=== PATIENT | female | born 1985 ===

== ENCOUNTER 2020-03-14 00:21 | Inpatient (IN) | payer OTHER ==
[2020-03-14] MEDS ORDERED: Nalbuphine 10 MG/1 ML Vial IVPUSH PRN (00:27)
[2020-03-14] MEDS ORDERED: Tranexamic Acid 1,000 MG in Sodium Chloride 0.9% 100 ML IV PRN (00:27)
[2020-03-14] MEDS ORDERED: Sodium Chloride 0.9% 10 ML SDV IV PRN (00:27)
[2020-03-14] MEDS ORDERED: Carboprost Tromethamine 250 MCG/1 ML Amp IM PRN (00:27)
[2020-03-14] MEDS ORDERED: Water For Irrigation,Sterile 1,000 ML Container IRR PRN (00:27)
[2020-03-14] MEDS ORDERED: Misoprostol 200 MCG Tab PO PRN (00:27)
[2020-03-14] MEDS ORDERED: Ondansetron 4 MG/2 ML SDV IVPUSH PRN (00:27)
[2020-03-14] MEDS ORDERED: Lidocaine 1% 50 ML MDV INJECT PRN (00:27)
[2020-03-14] MEDS ORDERED: Sodium Chloride 0.9% 10 ML Syringe FLUSH PRN (00:27)
[2020-03-14] MEDS ORDERED: Sodium Chloride 0.9% 2.5 ML Syringe FLUSH PRN (00:27)
[2020-03-14] MEDS ORDERED: Ampicillin 2 GM in Sodium Chloride 0.9% 100 ML IV ONE (00:27)
[2020-03-14] MEDS ORDERED: Methylergonovine 0.2 MG/1 ML Amp IM PRN (00:27)
[2020-03-14] MEDS ORDERED: Oxytocin/0.9 % Sodium Chloride 30 UNIT/500 ML BAG IV SCH ×2 (00:30→00:45)
[2020-03-14] MEDS ORDERED: Misoprostol 25 MCG (1/4 of 100 MCG) Tab VAG PRN (00:32)
[2020-03-14] MEDS ORDERED: Terbutaline 1 MG/ML SDV SUBCUT PRN (00:32)
[2020-03-14] MEDS ORDERED: Misoprostol 25 MCG (1/4 of 100 MCG) Tab PO PRN (00:32)
[2020-03-14] MEDS: Lactated Ringers 1,000 ML IV SCH ×3 (00:55→13:38)
[2020-03-14] MEDS: Ampicillin 1 GM in Sodium Chloride 0.9% 50 ML IV SCH ×4 (04:55→17:07)
[2020-03-14] MEDS: Butorphanol 1 MG/ML SDV IVPUSH PRN ×2 (09:30→10:44)
[2020-03-14] MEDS ORDERED: FLU VACC QS2020-21(6MOS UP)/PF 60 MCG/0.5 ML SYRINGE IM ONE (10:00)
[2020-03-14] MEDS ORDERED: Butorphanol 1 MG/ML SDV IM STA (10:38)
[2020-03-14] MEDS ORDERED: Promethazine 25 MG/ML SDV IM STA (10:39)
--- NOTE | 2020-03-14 11:50 | PCM.LDHP ---
L&D History of Present Illness - General Date of Service: 03/14/20 Admit Problem/Dx: Patient Status Order with Admit Dx/Problem 03/14/20 00:27 Patient Status [ADT] Routine Admission Diagnosis/Problem Admission Diagnosis/Problem - planned 03/14/20 11:43 Term Post date induction of labor Source of Information: Patient History Limitations: Reports: No Limitations - History of Present Illness Introduction:: 34yo at 40w4d [place] here for induction of labor for postdate. GBS+, otherwise unremarkable. 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: Social & Family History - Family History Family Medical History: Noncontributory - Tobacco Use Tobacco Use Status *Q: Never Tobacco User Second Hand Smoke Exposure: No - Caffeine Use Caffeine Use: Reports: Coffee, Energy Drinks, Soda, Tea H&P Review of Systems - Review of Systems: Review Of Systems: See Below General: Reports: No Symptoms HEENT: Reports: No Symptoms Pulmonary: Reports: No Symptoms Cardiovascular: Reports: No Symptoms Gastrointestinal: Reports: No Symptoms Genitourinary: Reports: No Symptoms Musculoskeletal: Reports: No Symptoms Skin: Reports: No Symptoms Psychiatric: Reports: No Symptoms Neurological: Reports: No Symptoms Hematologic/Lymphatic: Reports: No Symptoms Immunologic: Reports: No Symptoms L&D Exam - Exam Exam: See Below - Vital Signs Weight: 68.492 kg - OB Specific Contraction Intensity: Irritability Movement: Active Heart Tones: Present Heart Tones per Min: 140 Heart Rate (FHR) Variability: Moderate (6-25 bmp) Presentation: Vertex Estimated Weight: 7lbs 5oz - Elizabeth Score Elizabeth Score Cervix Position: Midposition Elizabeth Score Consistency: Soft Elizabeth Score Effacement: >80% Elizabeth Score Dilation: 1-2 cm Elizabeth Score Infant's Station: -2 Elizabeth Score Total: 8 - Exam General: Alert, Oriented Neck: Supple Lungs: Clear to Auscultation, Normal Respiratory Effort Cardiovascular: Regular Rate, Regular Rhythm GI/Abdominal Exam: Soft, Non-Tender Psychiatric: Normal Affect, Normal Mood (Vaginal exam perfomed by the nurse) - Patient Data Lab Results Last 24 hrs: Laboratory Results - last 24 hr 03/14/20 03/14/20 03/14/20 Range/Units 00:40 00:40 00:55 WBC 7.83 (4.0-11.0) K/uL RBC 4.01 L (4.30-5.90) M/uL Hgb 12.2 (12.0-16.0) g/dL Hct 37.7 (36.0-46.0) % MCV 94.0 (80.0-98.0) fL MCH 30.4 (27.0-32.0) pg MCHC 32.4 (31.0-37.0) g/dL RDW Std Deviation 47.8 (28.0-62.0) fl RDW Coeff of Christos 15 (11.0-15.0) % Plt Count 178 (150-400) K/uL MPV 11.20 (7.40-12.00) fL SARS-CoV-2 RNA (SONA) NEGATIVE (NEGATIVE) Blood Type A POSITIVE Antibody Screen NEGATIVE Result Diagrams: 03/14/20 00:40 - Problem List (1) Post term over 40 weeks SNOMED Code(s): 053900375 ICD Code: O48.0 - POST-TERM Status: Acute Current Visit: Yes (2) Positive GBS test SNOMED Code(s): 197852282, 468214863 ICD Code: B95.1 - STREPTOCOCCUS, GROUP B, CAUSING DISEASES CLASSD [id number] Status: Acute Current Visit: Yes (3) GBS (group B Streptococcus carrier), +RV culture, currently SNOMED Code(s): 2348275304811, 373001975, 5293067109996 ICD Code: O99.820 - STREPTOCOCCUS B CARRIER STATE COMPLICATING Status: Acute Current Visit: Yes Problem List Initiated/Reviewed/Updated: Yes Orders Last 24hrs: Active Orders 24 hr Category Date Time Status Patient Status [ADT] Routine ADT 03/14/20 00:27 Active Bedrest Bathroom Privileges [RC] ASDIRECTED Care 03/14/20 00:32 Active Communication Order [RC] ASDIRECTED Care 03/14/20 00:32 Active Communication Order [RC] ASDIRECTED Care 10/18/20 00:32 Active Communication Order [RC] ASDIRECTED Care 03/14/20 00:32 Active Heart Tones [RC] CONTINUOUS Care 03/14/20 00:27 Active Non Stress Test [RC] PER UNIT ROUTINE Care 03/14/20 00:27 Active Influenza Vaccine Charge [RC] .DISCHARGE Care 03/14/20 02:53 Active May Shower [RC] ASDIRECTED Care 03/14/20 00:27 Active Notify Provider [RC] PRN Care 03/14/20 00:27 Active Notify Provider [RC] PRN Care 03/14/20 00:32 Active Notify Provider [RC] PRN Care 03/14/20 00:32 Active Notify Provider [RC] STAT Care 03/14/20 00:32 Active Oxygen Therapy [RC] ASDIRECTED Care 03/14/20 00:32 Active Up ad Steph [RC] ASDIRECTED Care 03/14/20 00:27 Active Vaginal Exam [RC] PRN Care 03/14/20 00:27 Active Vaginal Exam [RC] PRN Care 03/14/20 00:32 Active Vital Signs [RC] PER UNIT ROUTINE Care 03/14/20 00:27 Active Vital Signs [RC] PER UNIT ROUTINE Care 03/14/20 00:32 Active Regular Diet [DIET] Diet 03/14/20 Breakfast Active RPR (SYPHILIS SERO) W/ RFLX [REF] Routine Lab 03/14/20 00:40 Received Ampicillin 1 gm Med 03/14/20 05:00 Active Sodium Chloride 0.9% [Normal Saline] 50 ml IV Q4H Butorphanol [Stadol] Med 03/14/20 09:19 Active 1 mg IVPUSH Q1H PRN Carboprost Tromethamine [Hemabate DS] Med 03/14/20 00:27 Active 250 mcg IM ASDIRECTED PRN Lactated Ringers [Ringers, Lactated] 1,000 ml Med 03/14/20 00:30 Active IV ASDIRECTED Lidocaine 1% [Xylocaine 1%] Med 03/14/20 00:27 Active 50 ml INJECT ONETIME PRN Methylergonovine [Methergine] Med 03/14/20 00:27 Active 0.2 mg IM ASDIRECTED PRN Nalbuphine [Nubain] Med 03/14/20 00:27 Active 10 mg IVPUSH Q1H PRN Ondansetron [Zofran] Med 03/14/20 00:27 Active 4 mg IVPUSH Q6H PRN Oxytocin/0.9 % Sodium Chloride [Oxytocin 30 Unit/500 ML Med 03/14/20 00:30 Active -NS] 30 unit in 500 ml IV TITRATE Oxytocin/0.9 % Sodium Chloride [Oxytocin 30 Unit/500 ML Med 03/14/20 00:45 Active -NS] 30 unit in 500 ml IV TITRATE Sodium Chloride 0.9% [Normal Saline] Med 03/14/20 00:27 Active 10 ml IV ASDIRECTED PRN Sodium Chloride 0.9% [Saline Flush] Med 03/14/20 00:27 Active 10 ml FLUSH ASDIRECTED PRN Sodium Chloride 0.9% [Saline Flush] Med 03/14/20 00:27 Active 2.5 ml FLUSH ASDIRECTED PRN Terbutaline [Brethine] Med 03/14/20 00:32 Active 0.25 mg SUBCUT ASDIRECTED PRN Tranexamic Acid [Cyklokapron] 1,000 mg Med 03/14/20 00:27 Active Sodium Chloride 0.9% [Normal Saline] 100 ml IV ONETIME Water For Irrigation,Sterile [Sterile Water for Med 03/14/20 00:27 Active Irrigation] 1,000 ml IRR ASDIRECTED PRN miSOPROStoL [Cytotec] Med 03/14/20 00:27 Active 200 mcg PO ONETIME PRN miSOPROStoL [Cytotec] Med 03/14/20 00:32 Active 25 mcg PO Q4H PRN miSOPROStoL [Cytotec] Med 03/14/20 00:32 Active 25 mcg VAG Q4H PRN Scalp Electrode [WOMSER] Per Unit Routine Oth 03/14/20 00:27 Ordered Medication Administration Instruction [OM.PC] Q3H Oth 03/14/20 00:45 Ordered Peripheral IV Insertion Adult [OM.PC] Routine Oth 03/14/20 00:27 Ordered Resuscitation Status Routine Resus Stat 03/14/20 00:27 Ordered Medication Orders Butorphanol Tartrate (Stadol) 1 mg IVPUSH Q1H PRN PRN Reason: Pain (moderate 4-6) Last Admin: 03/14/20 10:44 Dose: 1 mg Documented by: Admin: 03/14/20 09:30 Dose: 1 mg Documented by: ROSALVA Carboprost Tromethamine (Hemabate Ds) 250 mcg IM ASDIRECTED PRN PRN Reason: Post Hemorrhage Lactated Ringer's (Ringers, Lactated) 1,000 mls @ 150 mls/hr IV ASDIRECTED TARA Last Admin: 03/14/20 00:55 Dose: 150 mls/hr Documented by: KIYA Oxytocin/Sodium Chloride (Oxytocin 30 Unit/500 Ml-Ns) 30 unit in 500 mls @ 999 mls/hr IV TITRATE TARA Tranexamic Acid 1,000 mg/ (Sodium Chloride) 110 mls @ 660 mls/hr IV ONETIME PRN PRN Reason: Bleeding Oxytocin/Sodium Chloride (Oxytocin 30 Unit/500 Ml-Ns) 30 unit in 500 mls @ 2 mls/hr IV TITRATE TARA; Protocol Ampicillin Sodium 1 gm/ Sodium (Chloride) 50 mls @ 100 mls/hr IV Q4H TARA Last Admin: 03/14/20 09:00 Dose: 100 mls/hr Documented by: Infusion: 03/14/20 05:25 Dose: 100 mls/hr Documented by: Admin: 03/14/20 04:55 Dose: 100 mls/hr Documented by: KIYA Lidocaine HCl (Xylocaine 1%) 50 ml INJECT ONETIME PRN PRN Reason: Laceration repair Methylergonovine Maleate (Methergine) 0.2 mg IM ASDIRECTED PRN PRN Reason: Post Hemorrhage Misoprostol (Cytotec) 200 mcg PO ONETIME PRN PRN Reason: Post Hemorrhage Misoprostol (Cytotec) 25 mcg VAG Q4H PRN PRN Reason: Cervical Ripening Last Admin: 03/14/20 01:52 Dose: 25 mcg Documented by: KIYA Misoprostol (Cytotec) 25 mcg PO Q4H PRN PRN Reason: Cervical Ripening Last Admin: 03/14/20 01:51 Dose: 25 mcg Documented by: KIYA Nalbuphine HCl (Nubain) 10 mg IVPUSH Q1H PRN PRN Reason: Pain (severe 7-10) Ondansetron HCl (Zofran) 4 mg IVPUSH Q6H PRN PRN Reason: Nausea/Vomiting Sodium Chloride (Saline Flush) 10 ml FLUSH ASDIRECTED PRN PRN Reason: Keep Vein Open Sodium Chloride (Saline Flush) 2.5 ml FLUSH ASDIRECTED PRN PRN Reason: Keep Vein Open Sodium Chloride (Normal Saline) 10 ml IV ASDIRECTED PRN PRN Reason: IV Use Sterile Water (Sterile Water For Irrigation) 1,000 ml IRR ASDIRECTED PRN PRN Reason: delivery Terbutaline Sulfate (Brethine) 0.25 mg SUBCUT ASDIRECTED PRN PRN Reason: Tacysystole Assessment/Plan Comment:: 34yo at 40w4d [place] here for induction of labor for postdate. GBS+, otherwise unremarkable. Elizabeth score 8 on admission, S/P cytotec Patient currently /-1 Irreg Ctx Q1-4mns Cat1 tracing S/P Stadol x2 and Phenergan x2 Declining the epidural Continue expectant management Continue Ampicillin for GBS
[2020-03-14] MEDS ORDERED: Ropivacaine HCl/PF 100 ML ONE (12:52)
[2020-03-14] MEDS ORDERED: fentaNYL 100 MCG/2 ML SDV ONE (12:52)
--- NOTE | 2020-03-14 13:37 | PCM.PREANE ---
Preanesthetic Assessment - Procedure Proposed Procedure: PARAMJIT for active labor, induction at 40 wks. - Anesthesia/Transfusion/Family Hx Anesthesia History: Prior Anesthesia Without Reaction (Denies prior surgical procedures. Epidural for previous labor successful without complications.) Family History of Anesthesia Reaction: No Transfusion History: No Prior Transfusion(s) - Review of Systems General: No Symptoms Pulmonary: No Symptoms Cardiovascular: No Symptoms Gastrointestinal: No Symptoms Neurological: No Symptoms Other: Reports: None - Physical Assessment NPO Status Date: 03/13/20 (NPO except for clear liquids since last night) NPO Status Time: 23:00 Height: 1.57 m Weight: 68.492 kg ASA Class: 2 Mental Status: Alert & Oriented x3 Dentition: Reports: Normal Dentition Thyro-Mental Finger Breadths: 3 Mouth Opening Finger Breadths: 3 ROM/Head Extension: Full Lungs: Normal Respiratory Effort Cardiovascular: Regular Rate, Regular Rhythm - Lab Values: Laboratory Last Values WBC 7.83 K/uL (4.0-11.0) 03/14/20 00:40 RBC 4.01 M/uL (4.30-5.90) L 03/14/20 00:40 Hgb 12.2 g/dL (12.0-16.0) 03/14/20 00:40 Hct 37.7 % (36.0-46.0) 03/14/20 00:40 MCV 94.0 fL (80.0-98.0) 03/14/20 00:40 MCH 30.4 pg (27.0-32.0) 03/14/20 00:40 MCHC 32.4 g/dL (31.0-37.0) 03/14/20 00:40 RDW Std Deviation 47.8 fl (28.0-62.0) 03/14/20 00:40 RDW Coeff of Christos 15 % (11.0-15.0) 03/14/20 00:40 Plt Count 178 K/uL (150-400) 03/14/20 00:40 MPV 11.20 fL (7.40-12.00) 03/14/20 00:40 SARS-CoV-2 RNA (SONA) NEGATIVE (NEGATIVE) 03/14/20 00:55 Blood Type A POSITIVE 03/14/20 00:40 Antibody Screen NEGATIVE 03/14/20 00:40 - Allergies Allergies/Adverse Reactions: Allergies Allergy/AdvReac Type Severity Reaction Status Date / Time No Known Allergies Allergy Verified 03/14/20 00:24 - Acknowledgements Anesthesia Type Planned: Epidural Pt an Appropriate Candidate for the Planned Anesthesia: Yes Alternatives and Risks of Anesthesia Discussed w Pt/Guardian: Yes Pt/Guardian Understands and Agrees with Anesthesia Plan: Yes Additional Comments: Discussed risks, benefits, alternatives, procedure, maintenance, and anesthesia coverage. Educated regarding RISK CONSULTING TREASURY DIRECTOR use. All questions answered and concerns addressed. Consent signed with RN witness present. 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 USE Tobacco Use Status *Q: Never Tobacco User Second Hand Smoke Exposure: No - CURRENT (IN HOUSE) MEDS Current Meds: Current Medications Butorphanol Tartrate (Stadol) 1 mg IVPUSH Q1H PRN PRN Reason: Pain (moderate 4-6) Last Admin: 03/14/20 10:44 Dose: 1 mg Documented by: Carboprost Tromethamine (Hemabate Ds) 250 mcg IM ASDIRECTED PRN PRN Reason: Post Hemorrhage Lactated Ringer's (Ringers, Lactated) 1,000 mls @ 150 mls/hr IV ASDIRECTED TARA Last Admin: 03/14/20 13:10 Dose: 150 mls/hr Documented by: Oxytocin/Sodium Chloride (Oxytocin 30 Unit/500 Ml-Ns) 30 unit in 500 mls @ 999 mls/hr IV TITRATE [facility] Tranexamic Acid 1,000 mg/ (Sodium Chloride) 110 mls @ 660 mls/hr IV ONETIME PRN PRN Reason: Bleeding Oxytocin/Sodium Chloride (Oxytocin 30 Unit/500 Ml-Ns) 30 unit in 500 mls @ 2 mls/hr IV TITRATE [facility]; Protocol Ampicillin Sodium 1 gm/ Sodium (Chloride) 50 mls @ 100 mls/hr IV Q4H TARA Last Admin: 03/14/20 13:10 Dose: 100 mls/hr Documented by: Lidocaine HCl (Xylocaine 1%) 50 ml INJECT ONETIME PRN PRN Reason: Laceration repair Methylergonovine Maleate (Methergine) 0.2 mg IM ASDIRECTED PRN PRN Reason: Post Hemorrhage Misoprostol (Cytotec) 200 mcg PO ONETIME PRN PRN Reason: Post Hemorrhage Misoprostol (Cytotec) 25 mcg VAG Q4H PRN PRN Reason: Cervical Ripening Last Admin: 03/14/20 01:52 Dose: 25 mcg Documented by: Misoprostol (Cytotec) 25 mcg PO Q4H PRN PRN Reason: Cervical Ripening Last Admin: 03/14/20 01:51 Dose: 25 mcg Documented by: Nalbuphine HCl (Nubain) 10 mg IVPUSH Q1H PRN PRN Reason: Pain (severe 7-10) Ondansetron HCl (Zofran) 4 mg IVPUSH Q6H PRN PRN Reason: Nausea/Vomiting Sodium Chloride (Saline Flush) 10 ml FLUSH ASDIRECTED PRN PRN Reason: Keep Vein Open Sodium Chloride (Saline Flush) 2.5 ml FLUSH ASDIRECTED PRN PRN Reason: Keep Vein Open Sodium Chloride (Normal Saline) 10 ml IV ASDIRECTED PRN PRN Reason: IV Use Sterile Water (Sterile Water For Irrigation) 1,000 ml IRR ASDIRECTED PRN PRN Reason: delivery Terbutaline Sulfate (Brethine) 0.25 mg SUBCUT ASDIRECTED PRN PRN Reason: Tacysystole Discontinued Medications Butorphanol Tartrate (Stadol) 1 mg IM ONETIME STA Stop: 03/14/20 10:39 Last Admin: 03/14/20 10:53 Dose: 1 mg Documented by: Fentanyl (Sublimaze) Confirm Administered Dose 200 mcg .ROUTE .STK-MED ONE Stop: 03/14/20 12:53 Ampicillin Sodium 2 gm/ Sodium (Chloride) 100 mls @ 200 mls/hr IV ONETIME ONE Stop: 03/14/20 00:56 Last Admin: 03/14/20 00:55 Dose: 200 mls/hr Documented by: Ropivacaine (Naropin 0.2%) Confirm Administered Dose 100 mls @ as directed .ROUTE .STK-MED ONE Stop: 03/14/20 12:53 Influenza Virus Vaccine (Pharmacy To Dose - Influenza Vaccine) 1 each IM ONETIME ONE Stop: 03/14/20 02:54 Influenza Virus Vaccine (Fluzone Quad 0372-1502 Syringe) 60 mcg IM .ONCE ONE Stop: 03/14/20 10:01 Promethazine HCl (Phenergan) 25 mg IM ONETIME STA Stop: 03/14/20 10:40 Last Admin: 03/14/20 10:54 Dose: 25 mg Documented by:
--- NOTE | 2020-03-14 13:45 | PCM.SN.2 ---
- Free Text/Narrative Note: Anesthesia time [id number] 1250- Bedside LDR room 3. Educated and discussed epidural risks, benefits, procedure, maintenance, anesthesia coverage, and educated regarding DRAPERY HANGER use. All questions answered and concerns addressed. 1254- Consent signed with RN witness 1259- Sitting position, "time out" completed, monitors on, sterile technique employed. Chlorhexidine prep, sterile plastic drape. 1304- Attempt #1 successful at L3-4. DARION with saline at 5cm, catheter threaded without resistance to 11cm. No paresthesias. Negative to aspiration for both blood and heme. 1305- Test dose negative. 1306- Sterile tegaderm dressing applied, cloth tape to secure. 1312- Bolus dose given and infusion started. 0.2% ropivicaine with 2mcg/ml fentanyl, 6ml/hr, 4ml DRAPERY HANGER bolus option every 10min, total 32 ml/hr lockout. Clinician bolus of 5ml. 1330- T9 level achieved, pt reports satisfactory pain control, vss.
[2020-03-14] MEDS ORDERED: Witch Hazel Medicated Pads 40/Jar TOP PRN (19:18)
[2020-03-14] MEDS ORDERED: Bisacodyl 10 MG Supp RECTAL PRN (19:18)
[2020-03-14] MEDS ORDERED: Lanolin 100% Cream 7 GM Tube TOP PRN (19:18)
[2020-03-14] MEDS ORDERED: Acetaminophen 500 MG Tab PO PRN (19:18)
[2020-03-14] MEDS ORDERED: Benzocaine/Menthol 20%-0.5% Spray 78 GM Cannister TOP PRN (19:18)
[2020-03-14] MEDS ORDERED: Ibuprofen 400 MG Tab PO PRN (19:18)
--- NOTE | 2020-03-14 19:32 | PCM.PNLD ---
Labor Progress Note - VS & Meds Active Medications: Current Medications Acetaminophen (Tylenol Extra Strength) 500 mg PO Q4H PRN PRN Reason: Pain Acetaminophen (Tylenol Extra Strength) 1,000 mg PO Q4H PRN PRN Reason: Pain Benzocaine/Menthol (Dermoplast Pain Relief 20%-0.5% [place]) 78 gm TOP ASDIRECTED PRN PRN Reason: Perineal Comfort Measure Bisacodyl (Dulcolax) 10 mg RECTAL ONETIME PRN PRN Reason: Constipation Butorphanol Tartrate (Stadol) 1 mg IVPUSH Q1H PRN PRN Reason: Pain (moderate 4-6) Last Admin: 03/14/20 10:44 Dose: 1 mg Documented by: Carboprost Tromethamine (Hemabate Ds) 250 mcg IM ASDIRECTED PRN PRN Reason: Post Hemorrhage Docusate Sodium (Colace) 100 mg PO BID PRN PRN Reason: Constipation Emollient Ointment (Lansinoh Hpa) 0 gm TOP ASDIRECTED PRN PRN Reason: Sore Nipples Lactated Ringer's (Ringers, Lactated) 1,000 mls @ 150 mls/hr IV ASDIRECTED [facility] Last Admin: 03/14/20 13:38 Dose: 150 mls/hr Documented by: Oxytocin/Sodium Chloride (Oxytocin 30 Unit/500 Ml-Ns) 30 unit in 500 mls @ 999 mls/hr IV TITRATE [facility] Last Admin: 03/14/20 18:18 Dose: 999 mls/hr Documented by: Tranexamic Acid 1,000 mg/ (Sodium Chloride) 110 mls @ 660 mls/hr IV ONETIME PRN PRN Reason: Bleeding Oxytocin/Sodium Chloride (Oxytocin 30 Unit/500 Ml-Ns) 30 unit in 500 mls @ 2 mls/hr IV TITRATE [facility]; Protocol Ampicillin Sodium 1 gm/ Sodium (Chloride) 50 mls @ 100 mls/hr IV Q4H [facility] Last Admin: 03/14/20 17:07 Dose: 100 mls/hr Documented by: Ibuprofen (Motrin) 400 mg PO Q4H PRN PRN Reason: Pain Ibuprofen (Motrin) 800 mg PO Q6H PRN PRN Reason: Pain Lidocaine HCl (Xylocaine 1%) 50 ml INJECT ONETIME PRN PRN Reason: Laceration repair Methylergonovine Maleate (Methergine) 0.2 mg IM ASDIRECTED PRN PRN Reason: Post Hemorrhage Misoprostol (Cytotec) 200 mcg PO ONETIME PRN PRN Reason: Post Hemorrhage Misoprostol (Cytotec) 25 mcg VAG Q4H PRN PRN Reason: Cervical Ripening Last Admin: 03/14/20 01:52 Dose: 25 mcg Documented by: Misoprostol (Cytotec) 25 mcg PO Q4H PRN PRN Reason: Cervical Ripening Last Admin: 03/14/20 01:51 Dose: 25 mcg Documented by: Nalbuphine HCl (Nubain) 10 mg IVPUSH Q1H PRN PRN Reason: Pain (severe 7-10) Ondansetron HCl (Zofran) 4 mg IVPUSH Q6H PRN PRN Reason: Nausea/Vomiting Sodium Chloride (Saline Flush) 10 ml FLUSH ASDIRECTED PRN PRN Reason: Keep Vein Open Sodium Chloride (Saline Flush) 2.5 ml FLUSH ASDIRECTED PRN PRN Reason: Keep Vein Open Sodium Chloride (Normal Saline) 10 ml IV ASDIRECTED PRN PRN Reason: IV Use Sterile Water (Sterile Water For Irrigation) 1,000 ml IRR ASDIRECTED PRN PRN Reason: delivery Terbutaline Sulfate (Brethine) 0.25 mg SUBCUT ASDIRECTED PRN PRN Reason: Tacysystole Witch [place] (Tucks) 1 pad TOP ASDIRECTED PRN PRN Reason: comfort care Discontinued Medications Butorphanol Tartrate (Stadol) 1 mg IM ONETIME STA Stop: 03/14/20 10:39 Last Admin: 03/14/20 10:53 Dose: 1 mg Documented by: Fentanyl (Sublimaze) Confirm Administered Dose 200 mcg .ROUTE .STK-MED ONE Stop: 03/14/20 12:53 Ampicillin Sodium 2 gm/ Sodium (Chloride) 100 mls @ 200 mls/hr IV ONETIME ONE Stop: 03/14/20 00:56 Last Admin: 03/14/20 00:55 Dose: 200 mls/hr Documented by: Ropivacaine (Naropin 0.2%) Confirm Administered Dose 100 mls @ as directed .ROUTE .STK-MED ONE Stop: 03/14/20 12:53 Influenza Virus Vaccine (Pharmacy To Dose - Influenza Vaccine) 1 each IM ONETIME ONE Stop: 03/14/20 02:54 Influenza Virus Vaccine (Fluzone Quad Syringe) 60 mcg IM .ONCE ONE Stop: 03/14/20 10:01 Promethazine HCl (Phenergan) 25 mg IM ONETIME STA Stop: 03/14/20 10:40 Last Admin: 03/14/20 10:54 Dose: 25 mg Documented by: - Uterine Contractions Uterine Monitoring Mode: External [place] Contraction Frequency (min): 1-4 Contraction Intensity: Moderate to Strong Uterine Resting Tone: Soft - Monitoring Monitor Mode: Doppler/Auscultation Heart Rate (FHR) Variability: Minimal (0-5 bpm) Accelerations: Present with Movement Decelerations: Variable Strip Review: Category II - Vaginal Exam Dilation (cm): 10 Effacement (Percent): 100 Station: 2 Cervical Position: Midposition - Labor Progress (Free Text) Labor Progress: Late Entry: Patient fully dilated at 16:30 Pushed for 1hr but fetus remained at +2 station. Additionally, tachycardia developed (170's). No maternal fever. Her VS wnl After fluid bolus and resting for 30mns, tachy was pretty much unchanged. Discussion regarding operative vaginal delivery using a vacuum. Patient gave consent.
--- NOTE | 2020-03-14 20:01 | PCM.DEL ---
L & D Note - General Info Date of Service: 03/14/20 Mother's Due Date: 03/10/20 - Delivery Note Labor: Induced by ARM (Induced by Cytotec) Cervical Ripening Method: Misoprostil Delivery Outcome: Livebirth Infant Delivery Method: Spontaneous Vaginal Delivery-Single Delivery Mode: Vacuum Extraction Presentation: Vertex Nuchal Cord: None Anesthesia Type: Epidural Amniotic Fluid Description: Clear Episiotomy Type: None Laceration: 2nd Degree Suture type: Vicryl Suture size: 3-0 Placenta: Intact, Spontaneous Cord: 3 Vessels Estimated Blood Loss: 400 Resuscitation Needed: No [place]: Bulb Syringe, Notrees Used, Warmer Used Score 1 min: 8 Score 5 min: 9 Delivery Comments (Free Text/Narrative):: VAVD of 34yo G2 now P2. care complicated by GBS+ S/P ampicillin intrapartum, adequately treated. With epidural administered, patient progressed to fully dilated, at +2 station. Patient pushed for 1hr, but due to persistent tachycardia, operative vaginal delivery was recommended and mother agreed. Kiwi vacuum was used, positioned over the flexion point. Vaccum suction was applied according to instructions at 600mm Hg. Traction was applied with maternal pushing efforts during the contractions. head was delivered after 2 contractions. No pop offs. Remainder of the infant was delivered without any complications. Baby cried spontaneously and was handed to mother for skin to skin. Placenta delivered spontaneously and intact. 2nd lacerations repaired with 3-0 and 4-0 Vicryl sutures Motorcycle Mechanic Apprentice and respiratory therapy team was present at delivery. All sponges and instrument counts correct Delivery details: Male infant Weight: 7'11" : 8/9 EBL 400cc - General Info Date of Service: 03/14/20 - Patient Data Weight - Most Recent: 68.492 kg I&O - Last 24 Hours: Intake & Output 03/14/20 03/14/20 03/14/20 06:59 14:59 22:59 Intake Total 2049 1300 Output Total 900 Balance 2049 400 Lab Results Last 24 Hours: Laboratory Results - last 24 hr 03/14/20 03/14/20 03/14/20 Range/Units 00:40 00:40 00:55 WBC 7.83 (4.0-11.0) K/uL RBC 4.01 L (4.30-5.90) M/uL Hgb 12.2 (12.0-16.0) g/dL Hct 37.7 (36.0-46.0) % MCV 94.0 (80.0-98.0) fL MCH 30.4 (27.0-32.0) pg MCHC 32.4 (31.0-37.0) g/dL RDW Std Deviation 47.8 (28.0-62.0) fl RDW Coeff of Christos 15 (11.0-15.0) % Plt Count 178 (150-400) K/uL MPV 11.20 (7.40-12.00) fL SARS-CoV-2 RNA (SONA) NEGATIVE (NEGATIVE) Blood Type A POSITIVE Antibody Screen NEGATIVE Med Orders - Current: Current Medications Acetaminophen (Tylenol Extra Strength) 500 mg PO Q4H PRN PRN Reason: Pain Acetaminophen (Tylenol Extra Strength) 1,000 mg PO Q4H PRN PRN Reason: Pain Benzocaine/Menthol (Dermoplast Pain Relief 20%-0.5% [place]) 78 gm TOP ASDIRECTED PRN PRN Reason: Perineal Comfort Measure Bisacodyl (Dulcolax) 10 mg RECTAL ONETIME PRN PRN Reason: Constipation Butorphanol Tartrate (Stadol) 1 mg IVPUSH Q1H PRN PRN Reason: Pain (moderate 4-6) Last Admin: 03/14/20 10:44 Dose: 1 mg Documented by: Carboprost Tromethamine (Hemabate Ds) 250 mcg IM ASDIRECTED PRN PRN Reason: Post Hemorrhage Docusate Sodium (Colace) 100 mg PO BID PRN PRN Reason: Constipation Emollient Ointment (Lansinoh Hpa) 0 gm TOP ASDIRECTED PRN PRN Reason: Sore Nipples Lactated Ringer's (Ringers, Lactated) 1,000 mls @ 150 mls/hr IV ASDIRECTED [facility] Last Admin: 03/14/20 13:38 Dose: 150 mls/hr Documented by: Oxytocin/Sodium Chloride (Oxytocin 30 Unit/500 Ml-Ns) 30 unit in 500 mls @ 999 mls/hr IV TITRATE [facility] Last Admin: 03/14/20 18:18 Dose: 999 mls/hr Documented by: Tranexamic Acid 1,000 mg/ (Sodium Chloride) 110 mls @ 660 mls/hr IV ONETIME PRN PRN Reason: Bleeding Oxytocin/Sodium Chloride (Oxytocin 30 Unit/500 Ml-Ns) 30 unit in 500 mls @ 2 mls/hr IV TITRATE TARA; Protocol Ampicillin Sodium 1 gm/ Sodium (Chloride) 50 mls @ 100 mls/hr IV Q4H [facility]ARA Last Admin: 03/14/20 17:07 Dose: 100 mls/hr Documented by: Ibuprofen (Motrin) 400 mg PO Q4H PRN PRN Reason: Pain Ibuprofen (Motrin) 800 mg PO Q6H PRN PRN Reason: Pain Lidocaine HCl (Xylocaine 1%) 50 ml INJECT ONETIME PRN PRN Reason: Laceration repair Methylergonovine Maleate (Methergine) 0.2 mg IM ASDIRECTED PRN PRN Reason: Post Hemorrhage Misoprostol (Cytotec) 200 mcg PO ONETIME PRN PRN Reason: Post Hemorrhage Misoprostol (Cytotec) 25 mcg VAG Q4H PRN PRN Reason: Cervical Ripening Last Admin: 03/14/20 01:52 Dose: 25 mcg Documented by: Misoprostol (Cytotec) 25 mcg PO Q4H PRN PRN Reason: Cervical Ripening Last Admin: 03/14/20 01:51 Dose: 25 mcg Documented by: Nalbuphine HCl (Nubain) 10 mg IVPUSH Q1H PRN PRN Reason: Pain (severe 7-10) Ondansetron HCl (Zofran) 4 mg IVPUSH Q6H PRN PRN Reason: Nausea/Vomiting Sodium Chloride (Saline Flush) 10 ml FLUSH ASDIRECTED PRN PRN Reason: Keep Vein Open Sodium Chloride (Saline Flush) 2.5 ml FLUSH ASDIRECTED PRN PRN Reason: Keep Vein Open Sodium Chloride (Normal Saline) 10 ml IV ASDIRECTED PRN PRN Reason: IV Use Sterile Water (Sterile Water For Irrigation) 1,000 ml IRR ASDIRECTED PRN PRN Reason: delivery Terbutaline Sulfate (Brethine) 0.25 mg SUBCUT ASDIRECTED PRN PRN Reason: Tacysystole Witch Carola (Tucks) 1 pad TOP ASDIRECTED PRN PRN Reason: comfort care Discontinued Medications Butorphanol Tartrate (Stadol) 1 mg IM ONETIME STA Stop: 03/14/20 10:39 Last Admin: 03/14/20 10:53 Dose: 1 mg Documented by: Fentanyl (Sublimaze) Confirm Administered Dose 200 mcg .ROUTE .STK-MED ONE Stop: 03/14/20 12:53 Ampicillin Sodium 2 gm/ Sodium (Chloride) 100 mls @ 200 mls/hr IV ONETIME ONE Stop: 03/14/20 00:56 Last Admin: 03/14/20 00:55 Dose: 200 mls/hr Documented by: Ropivacaine (Naropin 0.2%) Confirm Administered Dose 100 mls @ as directed .ROUTE .STK-MED ONE Stop: 03/14/20 12:53 Influenza Virus Vaccine (Pharmacy To Dose - Influenza Vaccine) 1 each IM ONETIME ONE Stop: 03/14/20 02:54 Influenza Virus Vaccine (Fluzone Quad Syringe) 60 mcg IM .ONCE ONE Stop: 03/14/20 10:01 Promethazine HCl (Phenergan) 25 mg IM ONETIME STA Stop: 03/14/20 10:40 Last Admin: 03/14/20 10:54 Dose: 25 mg Documented by: - Problem List & Annotations (1) Post term over 40 weeks SNOMED Code(s): 549000485 Code(s): O48.0 - POST-TERM Status: Acute Current Visit: Yes (2) Positive GBS test SNOMED Code(s): 777715728, 175751056 Code(s): B95.1 - STREPTOCOCCUS, GROUP B, CAUSING DISEASES CLASSD ELSWHR Status: Acute Current Visit: Yes (3) GBS (group B Streptococcus carrier), +RV culture, currently SNOMED Code(s): 3699241527364, 003490038, 7913571905020 Code(s): O99.820 - STREPTOCOCCUS B CARRIER STATE COMPLICATING Status: Acute Current Visit: Yes - Problem List Review Problem List Initiated/Reviewed/Updated: Yes - My Orders Last 24 Hours: My Active Orders 03/14/20 19:18 Acetaminophen [Tylenol Extra Strength] 1,000 mg PO Q4H PRN Acetaminophen [Tylenol Extra Strength] 500 mg PO Q4H PRN Benzocaine/Menthol [Dermoplast Pain Relief 20%-0.5% [place]] 78 gm TOP ASDIRECTED PRN Docusate Sodium [Colace] 100 mg PO BID PRN Ibuprofen [Motrin] 400 mg PO Q4H PRN Ibuprofen [Motrin] 800 mg PO Q6H PRN Lanolin [Lansinoh HPA] See Dose Instructions TOP ASDIRECTED PRN bisacodyL [Dulcolax] 10 mg RECTAL ONETIME PRN witch Carola [Tucks] 1 pad TOP ASDIRECTED PRN 03/14/20 19:19 Patient Status [ADT] Routine May Shower [RC] ASDIRECTED Up ad Steph [RC] ASDIRECTED Vital Signs [RC] PER UNIT ROUTINE Assess Lochia [WOMSER] Per Unit Routine Assess Uterine Involution [WOMSER] Per Unit Routine Peripheral IV Discontinue [OM.PC] Routine 03/15/20 05:11 HEMOGLOBIN/HEMATOCRIT,HH [HEME] Timed - Plan Plan:: 34yo at 40w4d GA here for induction of labor for postdate. GBS+, otherwise unremarkable. Elizabeth score 8 on admission, S/P cytotec Patient currently /-1 Irreg Ctx Q1-4mns Cat1 tracing S/P Stadol x2 and Phenergan x2 Declining the epidural Continue expectant management Continue Ampicillin for GBS
[2020-03-14] MEDS: Acetaminophen 500 MG Tab PO PRN (20:53)
[2020-03-14] MEDS: Ibuprofen 800 MG Tab PO PRN (20:53)
[2020-03-14] MEDS: Docusate Sodium 100 MG Cap PO PRN (20:54)
[2020-03-15] MEDS: Acetaminophen 500 MG Tab PO PRN ×3 (04:33→20:02)
--- NOTE | 2020-03-15 09:23 | PCM48HPAN ---
Post Anesthesia Note - EVALUATION WITHIN 48HRS OF ANESTHETIC Vital Signs in Normal Range: Yes Patient Participated in Evaluation: Yes Respiratory Function Stable: Yes Airway Patent: Yes Cardiovascular Function Stable: Yes Hydration Status Stable: Yes Pain Control Satisfactory: Yes Nausea and Vomiting Control Satisfactory: Yes Mental Status Recovered: Yes Vital Signs: Last Vital Signs Temp 36.2 C 03/15/20 00:00 Pulse 83 03/15/20 00:00 Resp 18 03/15/20 00:00 BP 112/74 03/15/20 00:00 Pulse Ox 98 03/15/20 00:00
--- NOTE | 2020-03-15 11:17 | OR ---
SURGEON: Zeynep Figueroa MD DATE OF PROCEDURE: 03/14/2020 PREOPERATIVE DIAGNOSES: Postdate , induction of labor. POSTOPERATIVE DIAGNOSES: Term , arrest of descent, tachycardia, category II tracing. OPERATION: Vacuum-assisted vaginal delivery of live male , position LOP, over an intact perineum with epidural anesthesia. DESCRIPTION OF PROCEDURE: Initially, the patient progressed to fully dilated at +2 station. The patient pushed for 1 hour but secondary to persistent tachycardia, operative vaginal delivery was recommended and mother agreed. Kiwi vacuum was used with the cup positioned over the flexion point. Vacuum suction was applied according to instruction at 600 mmHg. Traction was applied with maternal pushing efforts during the contractions. head was delivered after 2 contractions. No pop- off. Total application time was about 2 minutes. Vacuum was then disengaged. Remainder of the infant was delivered without any complications. Baby cried spontaneously and was handed to mother for skin to skin. Placenta delivered spontaneously and was intact. Second-degree laceration on the vaginal and perineal area repaired with 3-0 and 4-0 Vicryl suture. Technical Support Specialist and respiratory therapy team were present at delivery. All sponges and instrument counts were correct. DELIVERY DETAILS: Male infant. Weight 7 pounds 17 ounces. score 8 and 9. ESTIMATED BLOOD LOSS: 400 mL. GIA BARROW /[id number]
[2020-03-15] MEDS ORDERED: diphenhydrAMINE 50 MG Cap PO ONE (13:13)
--- NOTE | 2020-03-15 15:10 | PCM.PNPP ---
- General Info Date of Service: 03/15/20 Admission Dx/Problem (Free Text): Patient Status Order with Admit Dx/Problem 03/14/20 00:27 Patient Status [ADT] Routine Admission Diagnosis/Problem Admission Diagnosis/Problem - planned 03/14/20 11:43 Term Post date induction of labor Subjective Update: Rose Marie is a 34 yo PPD1 S/P OVD to term NBM. A pos, RI, GBS pos with adequate prophylaxis prior to . Patient is exclusively bottle feeding well, resting comfortably in bed with in nursery. Patient reports she is eating, ambulating independently and without difficulty. Urinary retention x 2 episodes since . Straight I/O cath #1: 2000 ml. Freeman inserted thereafter with second episode of bladder distention: 1400 ml. Freeman catheter currently in place. Patient denies any other problems or concerns at this time except mild-moderate intermittent uterine cramping relieved with Tylenol and Ibuprofen. Patient reports no bleeding to scant rubra lochia with no clots. Functional Status: Reports: Pain Controlled - Review of Systems General: Reports: No Symptoms HEENT: Reports: No Symptoms Pulmonary: Reports: No Symptoms Cardiovascular: Reports: No Symptoms Gastrointestinal: Reports: No Symptoms Genitourinary: Reports: Other (Urinary retention) Musculoskeletal: Reports: No Symptoms Skin: Reports: No Symptoms Neurological: Reports: No Symptoms Psychiatric: Reports: No Symptoms - General Info Date of Service: 03/15/20 - Patient Data Vital Signs - Most Recent: Last Vital Signs Temp 96.8 F L 03/15/20 07:52 Pulse 80 03/15/20 07:52 Resp 17 03/15/20 07:52 BP 118/72 03/15/20 07:52 Pulse Ox 99 03/15/20 07:52 Weight - Most Recent: 151 lb I&O - Last 24 Hours: Intake & Output 03/14/20 03/15/20 03/15/20 22:59 06:59 14:59 Intake Total 1300 2000 Output Total 900 2050 1400 Balance Lab Results - Last 24 Hours: Laboratory Results - last 24 hr 03/15/20 Range/Units 04:45 Hgb 10.8 L (12.0-16.0) g/dL Hct 33.7 L (36.0-46.0) % Med Orders - Current: Current Medications Acetaminophen (Tylenol Extra Strength) 500 mg PO Q4H PRN PRN Reason: Pain Acetaminophen (Tylenol Extra Strength) 1,000 mg PO Q4H PRN PRN Reason: Pain Last Admin: 03/15/20 13:22 Dose: 1,000 mg Documented by: Benzocaine/Menthol (Dermoplast Pain Relief 20%-0.5% [place]) 78 gm TOP ASDIRECTED PRN PRN Reason: Perineal Comfort Measure Last Admin: 03/14/20 20:52 Dose: 1 canister Documented by: Bisacodyl (Dulcolax) 10 mg RECTAL ONETIME PRN PRN Reason: Constipation Butorphanol Tartrate (Stadol) 1 mg IVPUSH Q1H PRN PRN Reason: Pain (moderate 4-6) Last Admin: 03/14/20 10:44 Dose: 1 mg Documented by: Carboprost Tromethamine (Hemabate Ds) 250 mcg IM ASDIRECTED PRN PRN Reason: Post Hemorrhage Docusate Sodium (Colace) 100 mg PO BID PRN PRN Reason: Constipation Last Admin: 03/14/20 20:54 Dose: 100 mg Documented by: Emollient Ointment (Lansinoh Hpa) 0 gm TOP ASDIRECTED PRN PRN Reason: Sore Nipples Lactated Ringer's (Ringers, Lactated) 1,000 mls @ 150 mls/hr IV ASDIRECTED TARA Last Admin: 03/14/20 13:38 Dose: 150 mls/hr Documented by: Oxytocin/Sodium Chloride (Oxytocin 30 Unit/500 Ml-Ns) 30 unit in 500 mls @ 999 mls/hr IV TITRATE [facility] Last Admin: 03/14/20 18:18 Dose: 999 mls/hr Documented by: Tranexamic Acid 1,000 mg/ (Sodium Chloride) 110 mls @ 660 mls/hr IV ONETIME PRN PRN Reason: Bleeding Oxytocin/Sodium Chloride (Oxytocin 30 Unit/500 Ml-Ns) 30 unit in 500 mls @ 2 mls/hr IV TITRATE [facility]; Protocol Ibuprofen (Motrin) 400 mg PO Q4H PRN PRN Reason: Pain Ibuprofen (Motrin) 800 mg PO Q6H PRN PRN Reason: Pain Last Admin: 03/14/20 20:53 Dose: 800 mg Documented by: Lidocaine HCl (Xylocaine 1%) 50 ml INJECT ONETIME PRN PRN Reason: Laceration repair Methylergonovine Maleate (Methergine) 0.2 mg IM ASDIRECTED PRN PRN Reason: Post Hemorrhage Misoprostol (Cytotec) 200 mcg PO ONETIME PRN PRN Reason: Post Hemorrhage Misoprostol (Cytotec) 25 mcg VAG Q4H PRN PRN Reason: Cervical Ripening Last Admin: 03/14/20 01:52 Dose: 25 mcg Documented by: Misoprostol (Cytotec) 25 mcg PO Q4H PRN PRN Reason: Cervical Ripening Last Admin: 03/14/20 01:51 Dose: 25 mcg Documented by: Nalbuphine HCl (Nubain) 10 mg IVPUSH Q1H PRN PRN Reason: Pain (severe 7-10) Ondansetron HCl (Zofran) 4 mg IVPUSH Q6H PRN PRN Reason: Nausea/Vomiting Sodium Chloride (Saline Flush) 10 ml FLUSH ASDIRECTED PRN PRN Reason: Keep Vein Open Sodium Chloride (Saline Flush) 2.5 ml FLUSH ASDIRECTED PRN PRN Reason: Keep Vein Open Sodium Chloride (Normal Saline) 10 ml IV ASDIRECTED PRN PRN Reason: IV Use Sterile Water (Sterile Water For Irrigation) 1,000 ml IRR ASDIRECTED PRN PRN Reason: delivery Terbutaline Sulfate (Brethine) 0.25 mg SUBCUT ASDIRECTED PRN PRN Reason: Tacysystole Witch Carola (Tucks) 1 pad TOP ASDIRECTED PRN PRN Reason: comfort care Last Admin: 03/14/20 20:52 Dose: 1 tub Documented by: Discontinued Medications Butorphanol Tartrate (Stadol) 1 mg IM ONETIME STA Stop: 03/14/20 10:39 Last Admin: 03/14/20 10:53 Dose: 1 mg Documented by: Diphenhydramine HCl (Benadryl) 50 mg PO ONETIME ONE Stop: 03/15/20 13:14 Last Admin: 03/15/20 13:22 Dose: 50 mg Documented by: Fentanyl (Sublimaze) Confirm Administered Dose 200 mcg .ROUTE .STK-MED ONE Stop: 03/14/20 12:53 Ampicillin Sodium 2 gm/ Sodium (Chloride) 100 mls @ 200 mls/hr IV ONETIME ONE Stop: 03/14/20 00:56 Last Admin: 03/14/20 00:55 Dose: 200 mls/hr Documented by: Ampicillin Sodium 1 gm/ Sodium (Chloride) 50 mls @ 100 mls/hr IV Q4H TARA Last Admin: 03/14/20 17:07 Dose: 100 mls/hr Documented by: Ropivacaine (Naropin 0.2%) Confirm Administered Dose 100 mls @ as directed . ROUTE .STK-MED ONE Stop: 03/14/20 12:53 Influenza Virus Vaccine (Pharmacy To Dose - Influenza Vaccine) 1 each IM ONETIME ONE Stop: 03/14/20 02:54 Influenza Virus Vaccine (Fluzone Quad Syringe) 60 mcg IM .ONCE ONE Stop: 03/14/20 10:01 Promethazine HCl (Phenergan) 25 mg IM ONETIME STA Stop: 03/14/20 10:40 Last Admin: 03/14/20 10:54 Dose: 25 mg Documented by: - Infant Interaction Infant Disposition, : [place] to Nursery Infant Interaction: Not Interacting Infant Feeding: Bottle Fed Infant Support Person: Significant Other - Recovery Exam Fundal Tone: Firm Fundal Level: 1 Fingerbreadths Above Umbilicus Fundal Placement: Midline Lochia Amount: Scant Lochia Color: Rubra/Red Perineum Description: Other (see below) Other Perinuem Description: Second degree tear,repaired Episiotomy/Laceration: Approximated Bladder Status: Nonpalpable - Exam General: Alert, Oriented, Cooperative, No Acute Distress HEENT: Pupils Equal Neck: Supple Lungs: Clear to Auscultation, Normal Respiratory Effort Cardiovascular: Regular Rate, Regular Rhythm GI/Abdominal Exam: Normal Bowel Sounds, Soft, Non-Tender, No Organomegaly, No Distention, No Mass Extremities: Normal Inspection, Normal Range of Motion, Non-Tender, No Pedal Edema, Normal Capillary Refill Skin: Warm, Dry, Intact Wound/Incisions: Healing Well Neurological: No New Focal Deficit Psy/Mental Status: Alert, Normal Affect, Normal Mood - Problem List & Annotations (1) Vacuum-assisted vaginal delivery SNOMED Code(s): 42658874071273386 Code(s): Z37.9 - OUTCOME OF DELIVERY, UNSPECIFIED Status: Acute Priority: High Current Visit: Yes (2) Urinary retention SNOMED Code(s): 024347476 Code(s): R33.9 - RETENTION OF URINE, UNSPECIFIED Status: Acute Priority: High Current Visit: Yes - Problem List Review Problem List Initiated/Reviewed/Updated: Yes - Plan Plan:: Hemodynamically stable, afebrile. Maintain freeman catheter until tomorrow am, plan to remove between 2-4 am 03/16/2020. Patient to continue to ambulate independently 3-5 times daily. Plan to D/C in am once able to void independently and adequately. Dr. Esqueda notified and agreeable with POC.
[2020-03-15] MEDS: Ibuprofen 800 MG Tab PO PRN (20:01)
[2020-03-15] MEDS: Docusate Sodium 100 MG Cap PO PRN (20:02)
[2020-03-16] MEDS: Ibuprofen 800 MG Tab PO PRN (03:33)
[2020-03-16] MEDS: Acetaminophen 500 MG Tab PO PRN (03:34)
--- NOTE | 2020-03-16 09:31 | PCM.DCSUM1 ---
Discharge Summary - Hospital Course Free Text/Narrative:: Rose Marie is a 34 yo PPD1 S/P OVD to term NBM. A pos, RI, GBS pos with adequate prophylaxis prior to . Patient is exclusively bottle feeding well, resting comfortably in bed with in nursery. Patient reports she is eating, ambulating independently and without difficulty. Urinary retention 1 day ago followed by 24 hr Kumari catheter. Kumari catheter D/Cd at 3:45 am today. Patient voided x 3 occurrences since removal. Post-void residual ~350 ml noted, patient denies pain or discomfort at this time. Patient denies any other problems or concerns at this time except mild intermittent uterine cramping, Tylenol and Ibuprofen declined at this time. Patient reports no bleeding to scant rubra lochia with no clots. Verbalizes desire to be D/Cd home today. Diagnosis: Stroke: No - Discharge Data Discharge Date: 03/16/20 Discharge Disposition: Home, Self-Care 01 Condition: Good - Referral to Home Health Primary Care Physician: PCP None - Discharge Diagnosis/Problem(s) (1) Vacuum-assisted vaginal delivery SNOMED Code(s): [id number] ICD Code: Z37.9 - OUTCOME OF DELIVERY, UNSPECIFIED Status: Acute Priority: High Current Visit: Yes (2) Urinary retention SNOMED Code(s): 707155256 ICD Code: R33.9 - RETENTION OF URINE, UNSPECIFIED Status: Acute Priority: High Current Visit: Yes - Patient Instructions Diet: Usual Diet as Tolerated, Regular Diet as Tolerated, Drink 8-10+ Glasses/Day Activity: As Tolerated, No Strenuous Activities Driving: May Drive Today Driving, Other: Sitz baths for perineal comfort Showering/Bathing: May Shower Notify Provider of: Fever, Increased Pain, Swelling and Redness, Drainage, Nausea and/or Vomiting Other/Special Instructions: Warning S/Ss of urinary retention and complications discussed, no questions or concerns. - Discharge Plan *PRESCRIPTION DRUG MONITORING PROGRAM REVIEWED*: No *COPY OF PRESCRIPTION DRUG MONITORING REPORT IN PATIENT NHUNG: No Prescriptions/Med Rec: Ibuprofen [Motrin] 800 mg PO Q8H PRN #90 tablet PRN Reason: Pain Home Medications: Home Meds Ibuprofen [Motrin] 800 mg PO Q8H PRN #90 tablet 03/16/20 [Rx] Oxygen Therapy Mode: Room Air Referrals: [facility] [Outside] Beth Chamorro CNM [Mid-] - 04/26/20 1:00 pm - Discharge Summary/Plan Comment DC Time >30 min.: Yes (D/C home today.) - General Info Date of Service: 03/16/20 Admission Dx/Problem (Free Text: Patient Status Order with Admit Dx/Problem 03/14/20 00:27 Patient Status [ADT] Routine Admission Diagnosis/Problem Admission Diagnosis/Problem - planned 03/14/20 11:43 Term Post date induction of labor Subjective Update: Rose Marie is a 34 yo PPD1 S/P OVD to term NBM. A pos, RI, GBS pos with adequate prophylaxis prior to . Patient is exclusively bottle feeding well, resting comfortably in bed with in nursery. Patient reports she is eating, ambulating independently and without difficulty. Urinary retention x 2 episodes since . Straight I/O cath #1: 2000 ml. Kumari inserted thereafter with second episode of bladder distention: 1400 ml. Kumari catheter currently in place. Patient denies any other problems or concerns at this time except mild-moderate intermittent uterine cramping relieved with Tylenol and Ibuprofen. Patient reports no bleeding to scant rubra lochia with no clots. Functional Status: Reports: Pain Controlled - Review of Systems General: Reports: No Symptoms HEENT: Reports: No Symptoms Pulmonary: Reports: No Symptoms Cardiovascular: Reports: No Symptoms Gastrointestinal: Reports: No Symptoms Genitourinary: Reports: No Symptoms Musculoskeletal: Reports: No Symptoms Skin: Reports: No Symptoms Neurological: Reports: No Symptoms Psychiatric: Reports: No Symptoms - Patient Data Vitals - Most Recent: Last Vital Signs Temp 96.7 F L 03/16/20 08:21 Pulse 68 03/16/20 08:21 Resp 22 H 03/16/20 08:21 BP 99/66 03/16/20 08:21 Pulse Ox 98 03/16/20 08:21 Weight - Most Recent: 151 lb I&O - Last 24 hours: Intake & Output 03/15/20 03/16/20 03/16/20 22:59 06:59 14:59 Output Total 1479 1350 500 Balance -1475 -1350 -500 Med Orders - Current: Current Medications Acetaminophen (Tylenol Extra Strength) 500 mg PO Q4H PRN PRN Reason: Pain Acetaminophen (Tylenol Extra Strength) 1,000 mg PO Q4H PRN PRN Reason: Pain Last Admin: 03/16/20 03:34 Dose: 1,000 mg Documented by: Benzocaine/Menthol (Dermoplast Pain Relief 20%-0.5% [place]) 78 gm TOP ASDIRECTED PRN PRN Reason: Perineal Comfort Measure Last Admin: 03/14/20 20:52 Dose: 1 canister Documented by: Bisacodyl (Dulcolax) 10 mg RECTAL ONETIME PRN PRN Reason: Constipation Butorphanol Tartrate (Stadol) 1 mg IVPUSH Q1H PRN PRN Reason: Pain (moderate 4-6) Last Admin: 03/14/20 10:44 Dose: 1 mg Documented by: Carboprost Tromethamine (Hemabate Ds) 250 mcg IM ASDIRECTED PRN PRN Reason: Post Hemorrhage Docusate Sodium (Colace) 100 mg PO BID PRN PRN Reason: Constipation Last Admin: 03/15/20 20:02 Dose: 100 mg Documented by: Emollient Ointment (Lansinoh Hpa) 0 gm TOP ASDIRECTED PRN PRN Reason: Sore Nipples Lactated Ringer's (Ringers, Lactated) 1,000 mls @ 150 mls/hr IV ASDIRECTED TARA Last Admin: 03/14/20 13:38 Dose: 150 mls/hr Documented by: Oxytocin/Sodium Chloride (Oxytocin 30 Unit/500 Ml-Ns) 30 unit in 500 mls @ 999 mls/hr IV TITRATE [facility] Last Admin: 03/14/20 18:18 Dose: 999 mls/hr Documented by: Tranexamic Acid 1,000 mg/ (Sodium Chloride) 110 mls @ 660 mls/hr IV ONETIME PRN PRN Reason: Bleeding Oxytocin/Sodium Chloride (Oxytocin 30 Unit/500 Ml-Ns) 30 unit in 500 mls @ 2 mls/hr IV TITRATE [facility]; Protocol Ibuprofen (Motrin) 400 mg PO Q4H PRN PRN Reason: Pain Ibuprofen (Motrin) 800 mg PO Q6H PRN PRN Reason: Pain Last Admin: 03/16/20 03:33 Dose: 800 mg Documented by: Lidocaine HCl (Xylocaine 1%) 50 ml INJECT ONETIME PRN PRN Reason: Laceration repair Methylergonovine Maleate (Methergine) 0.2 mg IM ASDIRECTED PRN PRN Reason: Post Hemorrhage Misoprostol (Cytotec) 200 mcg PO ONETIME PRN PRN Reason: Post Hemorrhage Misoprostol (Cytotec) 25 mcg VAG Q4H PRN PRN Reason: Cervical Ripening Last Admin: 03/14/20 01:52 Dose: 25 mcg Documented by: Misoprostol (Cytotec) 25 mcg PO Q4H PRN PRN Reason: Cervical Ripening Last Admin: 03/14/20 01:51 Dose: 25 mcg Documented by: Nalbuphine HCl (Nubain) 10 mg IVPUSH Q1H PRN PRN Reason: Pain (severe 7-10) Ondansetron HCl (Zofran) 4 mg IVPUSH Q6H PRN PRN Reason: Nausea/Vomiting Sodium Chloride (Saline Flush) 10 ml FLUSH ASDIRECTED PRN PRN Reason: Keep Vein Open Sodium Chloride (Saline Flush) 2.5 ml FLUSH ASDIRECTED PRN PRN Reason: Keep Vein Open Sodium Chloride (Normal Saline) 10 ml IV ASDIRECTED PRN PRN Reason: IV Use Sterile Water (Sterile Water For Irrigation) 1,000 ml IRR ASDIRECTED PRN PRN Reason: delivery Terbutaline Sulfate (Brethine) 0.25 mg SUBCUT ASDIRECTED PRN PRN Reason: Tacysystole Witch [place] (Tucks) 1 pad TOP ASDIRECTED PRN PRN Reason: comfort care Last Admin: 03/14/20 20:52 Dose: 1 tub Documented by: Discontinued Medications Butorphanol Tartrate (Stadol) 1 mg IM ONETIME STA Stop: 03/14/20 10:39 Last Admin: 03/14/20 10:53 Dose: 1 mg Documented by: Diphenhydramine HCl (Benadryl) 50 mg PO ONETIME ONE Stop: 03/15/20 13:14 Last Admin: 03/15/20 13:22 Dose: 50 mg Documented by: Fentanyl (Sublimaze) Confirm Administered Dose 200 mcg .ROUTE .STK-MED ONE Stop: 03/14/20 12:53 Ampicillin Sodium 2 gm/ Sodium (Chloride) 100 mls @ 200 mls/hr IV ONETIME ONE Stop: 03/14/20 00:56 Last Admin: 03/14/20 00:55 Dose: 200 mls/hr Documented by: Ampicillin Sodium 1 gm/ Sodium (Chloride) 50 mls @ 100 mls/hr IV Q4H TARA Last Admin: 03/14/20 17:07 Dose: 100 mls/hr Documented by: Ropivacaine (Naropin 0.2%) Confirm Administered Dose 100 mls @ as directed .ROUTE .STK-MED ONE Stop: 03/14/20 12:53 Influenza Virus Vaccine (Pharmacy To Dose - Influenza Vaccine) 1 each IM ONETIME ONE Stop: 03/14/20 02:54 Influenza Virus Vaccine (Fluzone Quad Syringe) 60 mcg IM .ONCE ONE Stop: 03/14/20 10:01 Promethazine HCl (Phenergan) 25 mg IM ONETIME STA Stop: 03/14/20 10:40 Last Admin: 03/14/20 10:54 Dose: 25 mg Documented by: - Exam General: Reports: Alert, Oriented, Cooperative, No Acute Distress HEENT: Reports: Pupils Equal, Pupils Reactive Neck: Reports: Supple Lungs: Reports: Clear to Auscultation, Normal Respiratory Effort Cardiovascular: Reports: Regular Rate, Regular Rhythm GI/Abdominal Exam: Normal Bowel Sounds, Soft, Non-Tender, No Organomegaly, No Distention (Female) Exam: Normal External Exam, Enlarged Uterus ( uterus, U+1 firm.), Vaginal Bleeding (Scant rubra lochia, no clots) Rectal (Female) Exam: Deferred Back Exam: Reports: Normal Inspection, Full Range of Motion Extremities: Normal Inspection, Normal Range of Motion, Non-Tender, No Pedal Edema, Normal Capillary Refill Skin: Reports: Warm, Dry, Intact Neurological: Reports: No New Focal Deficit Psy/Mental Status: Reports: Alert, Normal Affect, Normal Mood
[2020-03-16] MEDS ORDERED: FLU VACC QS2020-21(6MOS UP)/PF 60 MCG/0.5 ML SYRINGE IM ONE (12:00)
== END 2020-03-16 12:04 | disposition home or self-care (01) | DRG 807 ==
LOC: MW.OBCHECK 00:21 → MW.OB 00:22 → MW.OBCHECK 00:27 → OBSVTOIN 18:13 → MW.OB 21:30
PROVIDERS: ADMIT Obstetrics & Gynecology; ATTEND Advanced Practice Midwife
PROC: 10D07Z6 Extraction of Products of Conception, Vacuum, Via Natural or Artificial Opening (ICD-10-PCS; principal; 2020-03-14)
PROC: 0KQM0ZZ Repair Perineum Muscle, Open Approach (ICD-10-PCS; 2020-03-14)
PROC: 10907ZC Drainage of Amniotic Fluid, Therapeutic from Products of Conception, Via Natural or Artificial Opening (ICD-10-PCS; 2020-03-14)
PROC: 3E0P7VZ Introduction of Hormone into Female Reproductive, Via Natural or Artificial Opening (ICD-10-PCS; 2020-03-14)
PROC: 3E0R3BZ Introduction of Anesthetic Agent into Spinal Canal, Percutaneous Approach (ICD-10-PCS; 2020-03-14)
PROC: 00HU33Z Insertion of Infusion Device into Spinal Canal, Percutaneous Approach (ICD-10-PCS; 2020-03-14)
DX: O99.824 Streptococcus B carrier state complicating childbirth (principal); Z37.0 Single live birth; Z3A.39 39 weeks gestation of pregnancy; O76 Abnormality in fetal heart rate and rhythm complicating labor and delivery; O70.1 Second degree perineal laceration during delivery; Z20.828 Contact with and (suspected) exposure to other viral communicable diseases
CPT/HCPCS: 01967; 36415; 51702; 59025; 59409; 85014; 85018; 85027; 86592; 86850; 86900; 86901; 90686; A9270-GY; J0290; J0595; J2550; J2590; J7050; J7120; U0002

== ENCOUNTER 2024-01-27 00:28 | Inpatient (IN) | payer MEDICAID, OTHER ==
[2024-01-27] MEDS ORDERED: Butorphanol 2 MG/ML SDV IVPUSH PRN (00:57)
[2024-01-27] MEDS ORDERED: Tranexamic Acid IN NACL,ISO-OS 1,000 MG in Premix Bag 1 BAG IV PRN (00:57)
[2024-01-27] MEDS ORDERED: Sodium Chloride 0.9% 10 ML Syringe FLUSH PRN (00:57)
[2024-01-27] MEDS ORDERED: Carboprost Tromethamine 250 MCG/1 mL Vial IM PRN (00:57)
[2024-01-27] MEDS ORDERED: Methylergonovine 0.2 MG/1 ML Amp IM PRN (00:57)
[2024-01-27] MEDS ORDERED: Misoprostol 200 MCG Tab PO PRN (00:57)
[2024-01-27] MEDS ORDERED: Sodium Chloride 0.9% 20 ML SDV IV PRN (00:57)
[2024-01-27] MEDS ORDERED: Ondansetron 4 MG/2 ML SDV IVPUSH PRN (00:57)
[2024-01-27] MEDS ORDERED: Sodium Chloride 0.9% 2.5 ML Syringe FLUSH PRN (00:57)
[2024-01-27] MEDS ORDERED: Lidocaine 1% 50 ML MDV INJECT PRN (00:57)
[2024-01-27] MEDS ORDERED: Water For Irrigation,Sterile 1,000 ML Container IRR PRN (00:57)
[2024-01-27] MEDS ORDERED: Oxytocin/0.9 % Sodium Chloride 30 UNIT/500 ML BAG IV SCH (01:00)
[2024-01-27] MEDS: Ampicillin 2 GM in Sodium Chloride 0.9% 100 ML IV ONE (01:20)
[2024-01-27] MEDS: Lactated Ringers 1,000 ML IV SCH (01:20)
[2024-01-27 01:53] LABS: HEMATOCRIT 39.3 % (37.0-47.0); HEMOGLOBIN 13.2 g/dL (12.0-16.0); MEAN CORPUSCULAR HEMOGLOBIN 31.1 pg (28.0-32.0); MEAN CORPUSCULAR HGB CONC 33.6 g/dL (32.0-36.0); MEAN CORPUSCULAR VOLUME 92.7 fL (83.0-99.0); MEAN PLATELET VOLUME 12.1 fL (9.4-12.3); PLATELET COUNT,PLT 229 K/uL (150-400); RED BLOOD CELL COUNT 4.24 M/uL (4.10-5.30); WHITE BLOOD CELL COUNT,WBC 9.43 K/uL (3.9-11.3)
[2024-01-27] MEDS ORDERED: ePHEDrine 50 MG/ML SDV IVPUSH PRN (02:08)
[2024-01-27] MEDS ORDERED: Phenylephrine HCl In 0.9% NaCl 1 MG/10 ML Syringe IVPUSH PRN (02:08)
[2024-01-27] MEDS ORDERED: dexmedeTOMIDine HCl 200 MCG/2 ML SDV EPIDUR SCH (02:15)
[2024-01-27] MEDS: Ropivacaine HCl/PF 400 MG in Premix Bag 1 BAG EPIDUR SCH (03:48)
[2024-01-27] MEDS: Ampicillin 1 GM in Sodium Chloride 0.9% 50 ML IV SCH (04:30)
[2024-01-27] MEDS: Oxytocin/0.9 % Sodium Chloride 30 UNIT/500 ML BAG IV SCH (06:45)
[2024-01-27] MEDS ORDERED: oxyCODONE 5 MG Tab PO PRN ×2 (12:55→13:11)
[2024-01-27] MEDS ORDERED: Acetaminophen 500 MG Tab PO PRN (12:55)
[2024-01-27] MEDS ORDERED: Lanolin 100% Cream 7 GM Tube TOP PRN ×2 (12:55→13:11)
[2024-01-27] MEDS ORDERED: Docusate Sodium 100 MG Cap PO PRN ×2 (12:55→13:11)
[2024-01-27] MEDS: Oxytocin 10 Units/1 ML SDV IM ONE (13:00)
[2024-01-27] MEDS ORDERED: Witch Hazel Medicated Pads 40/Jar TOP PRN (13:11)
[2024-01-27] MEDS ORDERED: Ibuprofen 800 MG Tab PO PRN (13:11)
[2024-01-27] MEDS ORDERED: Benzocaine/Menthol 20%-0.5% Spray 78 GM Cannister TOP PRN (13:11)
[2024-01-27] MEDS: Acetaminophen 500 MG Tab PO PRN (14:37)
[2024-01-27] MEDS: Ibuprofen 800 MG Tab PO PRN (14:37)
[2024-01-27] MEDS: Witch Hazel Medicated Pads 40/Jar TOP PRN (14:38)
[2024-01-27] MEDS: Benzocaine/Menthol 20%-0.5% Spray 78 GM Cannister TOP PRN (14:38)
[2024-01-27] MEDS: Hydrocortisone 1% Crm 30 GM Tube TOP PRN (17:17)
[2024-01-27] MEDS: diphenhydrAMINE 25 MG Cap PO PRN (23:46)
[2024-01-28 06:24] LABS: HEMATOCRIT 32.5 % (37.0-47.0); HEMOGLOBIN 10.9 g/dL (12.0-16.0)
== END 2024-01-28 17:30 | disposition home or self-care (01) | DRG 807 ==
LOC: MW.OB 00:28 → MW.OBCHECK 00:28 → MW.OB 12:55 → MW.OBCHECK 13:04 → OBSVTOIN 13:12 → MW.OB 17:48
PROVIDERS: ADMIT Obstetrics & Gynecology; ATTEND Obstetrics & Gynecology
PROC: 10E0XZZ Delivery of Products of Conception, External Approach (ICD-10-PCS; principal; 2024-01-27)
PROC: 0KQM0ZZ Repair Perineum Muscle, Open Approach (ICD-10-PCS; 2024-01-27)
DX: O99.824 Streptococcus B carrier state complicating childbirth (principal); Z37.0 Single live birth; Z3A.38 38 weeks gestation of pregnancy; O69.81X0 Labor and delivery complicated by cord around neck, without compression, not applicable or unspecified; O70.1 Second degree perineal laceration during delivery
CPT/HCPCS: 01967; 36415; 51702; 59025; 59409; 85014; 85018; 85027; 86592; 86850; 86900; 86901; A9270-GY; J0290; J2590; J2795; J3490; J7120